=== PATIENT | male | born 1980 | race Caucasian/White ===

== ENCOUNTER 2017-06-01 19:47 | Emergency (ER) | payer OTHER ==
[2017-06-01] MEDS ORDERED: KETOROLAC TROMETHAMINE 60 MG/2 ML VIAL IM ONE (20:14)
[2017-06-01 20:16] VITALS: BMI 30.4
--- NOTE | 2017-06-01 20:18 | PDOC ---
Rapid Medical Evaluation Medical Evaluation: 06/01/17 20:12 I have performed a brief in-person evaluation of this patient. The patient presents with a chief complaint of: lower back pain x 1 day Pertinent physical exam findings: ambulatory I have ordered the following: Toradol The patient will proceed to the ED for further evaluation. Discharge Disposition - Diagnosis Low back pain - Referrals - Patient Instructions - Post Discharge Activity
[2017-06-01] MEDS ORDERED: KETOROLAC TROMETHAMINE 60 MG/2 ML VIAL ONE (20:58)
[2017-06-01] MEDS ORDERED: diazePAM CARPU-JECT 10 MG/2 ML DISP.SYRIN IM ONE (21:11)
--- NOTE | 2017-06-01 21:23 | PDOC ---
History of Present Illness - General History Source: Patient <Juan Daniel Ureña - Last Filed: 06/02/17 00:29> - General History Source: Patient Exam Limitations: No Limitations - History of Present Illness Initial Comments: 06/01/17 21:23 The patient is a 37 year old male, with no significant past medical history, who presents to the emergency department with back pain for approximately 1 day. The patient reports he was going to step into his truck when he felt a pop in his lower back. Patient reports associated lower back pain. Patient states he has had similar symptoms in the past, however, this episode has lasted longer than usual. The patient denies any associated neck pain, numbness, tingling, or pain radiating down his legs. Patient reports he is unable to sit secondary to pain, but has no difficulty ambulating. He denies any bladder or bowel incontinence, nausea, vomiting, diarrhea, constipation, flank pain, dysuria, hematuria, frequency, or urgency. He denies any fever, chills, headache , or dizziness. He denies any recent trauma, heavy lifting, or other strenuous activity. Allergies: NKDA Past Surgical History: None reported. Social History: Non smoker. No ETOH or recreational drug use. <Mali Aponte - Last Filed: 06/02/17 00:40> - General Chief Complaint: Back Pain Stated Complaint: BACK PAIN Time Seen by Provider: 06/01/17 20:18 Past History - Past Medical History COPD: No - Suicide/Smoking/Psychosocial Hx Smoking History: Never smoked Have you smoked in the past 12 months: No Information on smoking cessation initiated: No Hx Alcohol Use: No Drug/Substance Use Hx: No Substance Use Type: None <MichaelJuan Daniel minaya - Last Filed: 06/02/17 00:29> <Mali Aponte - Last Filed: 06/02/17 00:40> - Past Medical History Allergies/Adverse Reactions: Allergies Allergy/AdvReac Type Severity Reaction Status Date / Time No Known Allergies Allergy Verified 06/01/17 20:16 Home Medications: Ambulatory Orders Ibuprofen 800 mg PO TID #30 tablet 06/01/17 Methocarbamol [Robaxin-750] 750 mg PO TID #30 tablet 06/01/17 Oxycodone HCl/Acetaminophen [Percocet 5-325 mg Tablet] 1 - 2 tab PO Q6H #20 tablet MDD 4 06/02/17 Review of Systems - Review of Systems Able to Perform ROS?: Yes Comments:: 06/01/17 21:23 CONSTITUTIONAL: Absent: fever, no chills, no fatigue EYES: Absent: visual changes ENT: Absent: ear pain, no sore throat CARDIOVASCULAR: Absent: chest pain, no palpitations RESPIRATORY: Absent: cough, no SOB GI: Absent: abdominal pain, no nausea, no vomiting, no constipation, no diarrhea GENITOURINARY: Absent: dysuria, no frequency, no hematuria MUSCULOSKELETAL: Present: lower back pain/ pop Absent: no arthralgia, no myalgia SKIN: Absent: rash NEURO: Absent: headache, numbness, tingling, vertigo <FadiGiomilsy - Last Filed: 06/02/17 00:40> *Physical Exam - Vital Signs Last Vital Signs Temp Pulse Resp BP Pulse Ox 97.5 F L 90 18 186/123 98 06/01/17 20:12 06/01/17 20:12 06/01/17 20:12 06/01/17 20:12 06/01/17 20:12 <Juan Daniel Ureña - Last Filed: 06/02/17 00:29> - Vital Signs Last Vital Signs Temp Pulse Resp BP Pulse Ox 97.5 F L 90 18 186/123 98 06/01/17 20:12 06/01/17 20:12 06/01/17 20:12 06/01/17 20:12 06/01/17 20:12 - Physical Exam Comments: 06/01/17 21:23 GENERAL: Well-appearing, well-nourished. Mild distress. HEENT: Normocephalic, atraumatic. PERRL, EOM intact. CARDIOVASCULAR: Normal S1, S2. Regular rate and rhythm. PULMONARY: Clear to auscultation bilaterally. ABDOMEN: Soft, non-distended, non-tender. BACK: Paraspinal muscle spasm in the lumbosacral region. Minimal midline tenderness. No cervical spine tenderness. EXTREMITIES: Normal ROM in all four extremities. No gross deformities. SKIN: Warm, dry. No rash NEUROLOGICAL: Alert, awake, appropriate. Cranial nerves 2-12 intact. No deficits to light touch and temperature in face, upper extremities and lower extremities. No motor deficits in the in face, upper extremities and lower extremities. Normoreflexic in the upper and lower extremities. Normal speech. Toes are down- going bilaterally. Gait is normal without ataxia. <Mali Aponte - Last Filed: 06/02/17 00:40> ED Treatment Course - Medications Given in the ED: ED Medications Discontinued Medications Generic Name Dose Route Start Last Admin Trade Name Freq PRN Reason Stop Dose Admin Ketorolac Tromethamine 60 mg 06/01/17 20:14 06/01/17 21:06 Toradol Injection - IM 06/01/17 20:15 60 mg ONCE ONE Administration <Juan Daniel Ureña - Last Filed: 06/02/17 00:29> - RADIOLOGY Radiograph Interpretation: 06/02/17 00:39 EXAM: CT Lumbar Spine INTERPRETED BY: Dr. Barnard REVIEWED BY: Dr. Ureña IMPRESSION: The lumbar vertebrae are normally aligned. No fracture or destructive bone lesion. At L4-5, there is disc bulging with a probable centrally herniated component. At L5-S1, there is disc bulging with a questionable small central herniated component. Degenerative disc disease is best evaluated with MRI. No other appreciable abnormalities of the lumbar spine. Note made of a large amount of stool in the rectum. - Medications Given in the ED: ED Medications Discontinued Medications Generic Name Dose Route Start Last Admin Trade Name Freq PRN Reason Stop Dose Admin Ketorolac Tromethamine 60 mg 06/01/17 20:14 06/01/17 21:06 Toradol Injection - IM 06/01/17 20:15 60 mg ONCE ONE Administration <Mali Aponte - Last Filed: 06/02/17 00:40> Medical Decision Making - Medical Decision Making 06/01/17 21:39 Dr. Ureña: The scribe's documentation has been prepared under my direction and personally reviewed by me in its entirery. I confirm that the note above accurately reflects all work, treatment, procedures, and medical decision making performed by me. <Juan Daniel Ureña - Last Filed: 06/02/17 00:29> *DC/Admit/Observation/Transfer - Discharge Dispostion Admit: No <Juan Daniel Ureña - Last Filed: 06/02/17 00:29> - Attestations Scribe Attestion: 06/01/17 21:24 Documentation prepared by Mali Aponte, acting as medical technologist generalist for Juan Daniel Ureña DO. <Mali Aponte - Last Filed: 06/02/17 00:40> Diagnosis at time of Disposition: Low back pain, Herniated intervertebral disc of lumbar spine - Discharge Dispostion Disposition: HOME Condition at time of disposition: Stable - Prescriptions Prescriptions: Ibuprofen 800 mg PO TID #30 tablet Methocarbamol [Robaxin-750] 750 mg PO TID #30 tablet Oxycodone HCl/Acetaminophen [Percocet 5-325 mg Tablet] 1 - 2 tab PO Q6H #20 tablet MDD 4 - Referrals Referrals: Torey Tran MD [Staff Physician] - Lazaro Caldwell MD [Staff Physician] - - Patient Instructions Printed Discharge Instructions: DI for Low Back Pain, DI for Herniated Disc, DI for Back Spasm Additional Instructions: take medication as directed. Avoid heavy lifting as much as you can. Return if any problems. Print Language: [place] - Post Discharge Activity Forms/Work/School Notes: Back to Work
[2017-06-01] MEDS ORDERED: morphine CARPU-JECT 2 MG/1 ML DISP.SYRIN IM ONE (22:00)
[2017-06-01] MEDS ORDERED: morphine SULFATE 4 MG/ML VIAL ONE (22:04)
[2017-06-02 00:52] VITALS: BP 140/86; PULSE 89; TEMP 97.4
== END 2017-06-02 00:52 | disposition home or self-care (01) ==
LOC: JER 19:47
PROC: 3E0233Z Introduction of Anti-inflammatory into Muscle, Percutaneous Approach (ICD-10-PCS; principal; 2017-06-01)
PROC: 3E023NZ Introduction of Analgesics, Hypnotics, Sedatives into Muscle, Percutaneous Approach (ICD-10-PCS; 2017-06-01)
PROC: 3E023GC Introduction of Other Therapeutic Substance into Muscle, Percutaneous Approach (ICD-10-PCS; 2017-06-01)
DX: M54.5 Low back pain (principal); M51.35 Other intervertebral disc degeneration, thoracolumbar region
CPT/HCPCS: 72131-TC; 99282-25

== ENCOUNTER 2022-11-11 03:11 | Emergency (ER) | payer OTHER ==
[2022-11-11 03:16] VITALS: BP 143/104; PULSE 110; RESP 20; TEMP 99; BMI 28.8
[2022-11-11] MEDS ORDERED: KETOROLAC TROMETHAMINE 30 MG/1 ML VIAL IM ONE (03:26)
[2022-11-11] MEDS ORDERED: ACETAMINOPHEN 500 MG TABLET (FP) PO ONE (03:26)
[2022-11-11] MEDS ORDERED: diazePAM 5 MG TABLET PO ONE (03:26)
[2022-11-11] MEDS ORDERED: LIDOCAINE 5% TOPICAL PATCH TP ONE (03:26)
[2022-11-11] MEDS ORDERED: diazePAM 5 MG TABLET ONE (04:04)
[2022-11-11] MEDS ORDERED: KETOROLAC TROMETHAMINE 30 MG/1 ML VIAL ONE (04:04)
[2022-11-11] MEDS ORDERED: ACETAMINOPHEN 325 MG TABLET (FP) ONE (04:04)
[2022-11-11] MEDS ORDERED: LIDOCAINE 5% TOPICAL PATCH ONE (04:04)
[2022-11-11] MEDS ORDERED: oxyCODONE HCL 5 MG TABLET PO ONE (04:51)
[2022-11-11] MEDS ORDERED: oxyCODONE HCL 5 MG TABLET ONE (04:59)
[2022-11-11] MEDS ORDERED: LIDOCAINE PATCH REMOVAL MC SCH (22:00)
== END 2022-11-11 07:24 | disposition home or self-care (01) ==
LOC: JER 03:11
PROC: 3E0233Z Introduction of Anti-inflammatory into Muscle, Percutaneous Approach (ICD-10-PCS; principal; 2022-11-11)
DX: M54.9 Dorsalgia, unspecified (principal)
CPT/HCPCS: 99284-25